=== PATIENT | male | born 1970 | race African-American/Black ===

== ENCOUNTER 2022-01-25 15:40 | Emergency (ER) | payer SELFPAY ==
[~2022-01-25] VITALS: Ht 172.7 cm; Wt 97.7 kg
[2022-01-25 16:12] LABS: HEMATOCRIT 38.7 % (39.0-50.0); HEMOGLOBIN 12.3 g/dl (14.0-18.0); IMMATURE GRANULOCYTES 0.4 % (0.0-5.0); MEAN CELL VOLUME 84.5 fL CALC (80.0-100.0); MEAN CORPUSCULAR HGB 26.9 pG CALC (26.0-32.0); MEAN CORPUSCULAR HGB CONC 31.8 g/dL CAL (32.0-36.0); NEUT# 5.08 thou/uL (1.82-7.42); RED BLOOD COUNT 4.58 mill/uL (4.70-6.10); RED CELL DISTRI WIDTH 12.6 % (11.5-15.5)
[2022-01-25 16:21] LABS: ALBUMIN 4.6 g/dL (3.2-5.0); ALKALINE PHOSPHATASE 119 u/l (38-126); ANION GAP 17 (6-22 (CALC)); BILIRUBIN, TOTAL 0.6 mg/dL (0.0-1.4); BUN 13 mg/dL (9-20); BUN/CREATININE RATIO 12 (12-20 (CALC)); CARBON DIOXIDE 24 mmol/l (22-30); CHLORIDE 105 mmol/l (95-108); CREATININE 1.1 mg/dL (0.7-1.3); GFR FOR AFR.AMER. > 60 ML/MIN (>=60 (CALC)); GFR OTHER RACES > 60 ML/MIN (>=60 (CALC)); LIPASE 79 u/l (23-300); POTASSIUM 3.3 mmol/l (3.5-5.1); SGOT/AST 33 u/l (17-59); SODIUM 142 mmol/l (137-146); TOTAL PROTEIN 8.4 g/dL (6.3-8.2)
[2022-01-25] MEDS ORDERED: OFLOXACIN0.3 % OS (17:31)
[2022-01-25] MEDS ORDERED: CEPHALEXIN500 MG PO (17:31)
[2022-01-25 19:13] VITALS: BP 141/96
== END 2022-01-25 19:16 | disposition home or self-care (01) | DRG 999 ==
LOC: ED 15:40
PROVIDERS: Family Medicine
DX: S02.2XXA Fracture of nasal bones, initial encounter for closed fracture (principal); S06.0X1A Concussion with loss of consciousness of 30 minutes or less, initial encounter; Y04.0XXA Assault by unarmed brawl or fight, initial encounter; S01.112A Laceration without foreign body of left eyelid and periocular area, initial encounter